=== PATIENT | female | born 1970 | race Caucasian/White ===

== ENCOUNTER 2020-03-04 09:43 | Emergency (ER) | payer OTHER ==
[2020-03-04 10:15] LABS: HEMOGLOBIN 15.6 gm/dl (12.3-15.3); RED BLOOD COUNT 4.86 M/UL (4.00-5.10); WHITE BLOOD COUNT 7.9 K/UL (4.5-11.0)
[2020-03-04 10:40] LABS: BUN/CREATININE RATIO 14 (0-10)
[2020-03-04] MEDS ORDERED: ZITHROMAX250 MG PO (13:29)
[2020-03-04] MEDS ORDERED: OMNICEF 300 MG300 MG PO (13:29)
[2020-09-11] MEDS ORDERED: PANTOPRAZOLE SO20 MG PO (08:50)
[2020-09-11] MEDS ORDERED: ALLOPURINOL100 MG PO (08:50)
[2020-09-11] MEDS ORDERED: NABUMETONE750 MG PO (08:50)
[2020-09-11] MEDS ORDERED: HYDROCHLOROTHIA25 MG PO (08:52)
[2020-09-11] MEDS ORDERED: ATORVASTATIN CA20 MG PO (08:52)
[2020-09-11] MEDS ORDERED: METOPROLOL TART25 MG PO (08:54)
[2020-09-11] MEDS ORDERED: CYMBALTA20 MG PO (08:56)
[2020-09-11] MEDS ORDERED: CYCLOBENZAPRINE5 MG PO (08:57)
[2020-09-11] MEDS ORDERED: MELATONIN10 M2 PO (09:00)
[2020-09-11] MEDS ORDERED: MULTI VITAMIN PO (09:00)
[2020-09-11] MEDS ORDERED: FISH OIL 1,0001 EACH PO (09:01)
[2020-09-11] MEDS ORDERED: [UNRECOGNIZED DRUG - OTHER] PO (09:01)
== END 2020-03-04 13:51 | disposition home or self-care (01) ==
LOC: ER1 09:43
PROVIDERS: Family Medicine
DX: J18.9 Pneumonia, unspecified organism (principal); R07.9 Chest pain, unspecified; R00.1 Bradycardia, unspecified; R20.2 Paresthesia of skin; I10 Essential (primary) hypertension; K21.9 Gastro-esophageal reflux disease without esophagitis; Z88.0 Allergy status to penicillin; Z88.2 Allergy status to sulfonamides; Z79.899 Other long term (current) drug therapy
CPT/HCPCS: 71045; 80053; 82550; 82553; 83874; 84484; 85025; 85379; 93005; 96374; 99285; J1885

== ENCOUNTER → 2020-03-13 | Outpatient (CLI) | payer OTHER ==
[~2020-03-13] MED LIST: ALLOPURINOL100 MG PO; ATORVASTATIN CA20 MG PO; CYCLOBENZAPRINE5 MG PO; CYMBALTA20 MG PO; FISH OIL 1,0001 EACH PO; HYDROCHLOROTHIA25 MG PO; MELATONIN10 M2 PO; METOPROLOL TART25 MG PO; MULTI VITAMIN PO; NABUMETONE750 MG PO; OMNICEF 300 MG300 MG PO; PANTOPRAZOLE SO20 MG PO; ZITHROMAX250 MG PO; [UNRECOGNIZED DRUG - OTHER] PO
== END ==
LOC: RAD 08:40
DX: R07.9 Chest pain, unspecified (principal); R12 Heartburn; M54.5 Low back pain
CPT/HCPCS: 71046

== ENCOUNTER → 2020-04-05 | Outpatient (CLI) | payer OTHER | LOC: KOH-I 14:59 | DX: M54.40 Lumbago with sciatica, unspecified side (principal); R07.9 Chest pain, unspecified; R12 Heartburn; I10 Essential (primary) hypertension; M50.223 Other cervical disc displacement at C6-C7 level | CPT/HCPCS: 72141 ==

== ENCOUNTER → 2020-04-17 | Outpatient (CLI) | payer OTHER | LOC: EXRD 11:03 | DX: M19.041 Primary osteoarthritis, right hand (principal); M19.042 Primary osteoarthritis, left hand | CPT/HCPCS: 73130 ==

== ENCOUNTER → 2020-08-29 | Outpatient (CLI) | payer OTHER | LOC: KOH-I 13:13 | DX: Z01.818 Encounter for other preprocedural examination (principal); M50.221 Other cervical disc displacement at C4-C5 level; M48.02 Spinal stenosis, cervical region | CPT/HCPCS: 72125 ==

== ENCOUNTER → 2020-09-11 | Outpatient (CLI) | payer SELFPAY ==
[2020-09-11 09:07] LABS: HEMOGLOBIN 16.1 gm/dl (12.3-15.3); RED BLOOD COUNT 4.84 M/UL (4.00-5.10)
[2020-09-11 10:16] LABS: BUN/CREATININE RATIO 18 (0-10)
== END ==
LOC: EDSTATUS 08:00 → OPSV2 08:00
PROVIDERS: Orthopaedic Surgery
DX: Z01.818 Encounter for other preprocedural examination (principal); M47.22 Other spondylosis with radiculopathy, cervical region; R00.1 Bradycardia, unspecified
CPT/HCPCS: 36415; 71046; 80048; 81001; 85025; 87081; 93005

== ENCOUNTER → 2020-09-16 | Outpatient (CLI) | payer SELFPAY ==
[2020-09-16 14:08] LABS: BUN/CREATININE RATIO 15 (0-10)
== END ==
LOC: LAB 12:35
PROVIDERS: Orthopaedic Surgery
DX: Z01.812 Encounter for preprocedural laboratory examination (principal); I10 Essential (primary) hypertension; Z79.899 Other long term (current) drug therapy; M47.812 Spondylosis without myelopathy or radiculopathy, cervical region
CPT/HCPCS: 36415; 80048; 85610; 85730; 86850; 86900; 86901

== ENCOUNTER 2020-09-17 05:52 | Day surgery (SDC) | payer OTHER ==
[~2020-09-17] VITALS: Ht 165.1 cm; Wt 85.3 kg
[2020-09-17 07:40] LABS: BUN/CREATININE RATIO 15 (0-10)
[2020-09-18 04:05] LABS: RED BLOOD COUNT 4.23 M/UL (4.00-5.10); WHITE BLOOD COUNT 15.3 K/UL (4.5-11.0)
[2020-09-18 04:27] LABS: HEMOGLOBIN 14.1 gm/dl (12.3-15.3)
[2020-09-18 04:33] LABS: BUN/CREATININE RATIO 19 (0-10)
== END 2020-09-18 11:49 | disposition home or self-care (01) ==
LOC: OR 05:52 → CCU 13:11 → OR 09-18 11:49
PROVIDERS: Orthopaedic Surgery
DX: M47.22 Other spondylosis with radiculopathy, cervical region (principal); I10 Essential (primary) hypertension; K21.9 Gastro-esophageal reflux disease without esophagitis; M19.90 Unspecified osteoarthritis, unspecified site; Z98.51 Tubal ligation status; Z90.49 Acquired absence of other specified parts of digestive tract; Z88.0 Allergy status to penicillin; E78.5 Hyperlipidemia, unspecified; M79.7 Fibromyalgia; Z88.2 Allergy status to sulfonamides
CPT/HCPCS: 36415; 72040; 72050; 76000; 80048; 85027; 97161; 97166; C1713; C1762; C1781; J0690; J1040; J1100; J1170; J2001; J2250; J2405; J2704; J3010; J3370; J7040; J7120

== ENCOUNTER → 2021-02-04 | Outpatient (CLI) | payer SELFPAY ==
[2021-02-04 10:22] LABS: HEMOGLOBIN 15.7 gm/dl (12.3-15.3); RED BLOOD COUNT 4.79 M/UL (4.00-5.10); WHITE BLOOD COUNT 6.8 K/UL (4.5-11.0)
[2021-02-04 10:56] LABS: BUN/CREATININE RATIO 17 (0-10)
== END ==
LOC: LAB 09:46
PROVIDERS: Internal Medicine
DX: R53.83 Other fatigue (principal); M25.50 Pain in unspecified joint; E55.9 Vitamin D deficiency, unspecified; Z79.1 Long term (current) use of non-steroidal anti-inflammatories (NSAID)
CPT/HCPCS: 36415; 80053; 84439; 84443; 85025; 85652; 86140